=== PATIENT | male | born 1950 | race Caucasian/White ===

== ENCOUNTER 2018-12-23 09:29 | Observation (INO) | payer MEDICARE, BC ==
[~2018-12-23 09:29] MED LIST: Lidocaine 2% 5 ML SDV ONE; Propofol 200 MG/20 ML SDV ONE; fentaNYL 100 MCG/2 ML SDV ONE
[2018-12-23] MEDS: Lactated Ringers 1,000 ML IV SCH ×2 (10:22→16:52)
--- NOTE | 2018-12-23 10:24 | PCM.PREANE ---
Preanesthetic Assessment - Anesthesia/Transfusion/Family Hx Anesthesia History: Prior Anesthesia Without Reaction Family History of Anesthesia Reaction: No Transfusion History: No Prior Transfusion(s) - Review of Systems General: No Symptoms Pulmonary: Cough, Sputum Cardiovascular: No Symptoms Gastrointestinal: No Symptoms Neurological: No Symptoms Other: Reports: None - Physical Assessment NPO Status Date: 12/22/18 NPO Status Time: 23:59 Vital Signs: Last Vital Signs Temp 99.3 F 12/23/18 09:43 Pulse 101 H 12/23/18 09:43 Resp 20 12/23/18 09:43 BP 145/66 H 12/23/18 09:43 Pulse Ox 93 L 12/23/18 09:43 Height: 5 ft 11 in Weight: 108.862 kg ASA Class: 2 Mental Status: Alert & Oriented x3 Airway Class: Mallampati = 2 Dentition: Reports: Dentures ROM/Head Extension: Full Lungs: Clear to Auscultation, Normal Respiratory Effort Cardiovascular: Regular Rate, Regular Rhythm - Allergies Allergies/Adverse Reactions: Allergies Allergy/AdvReac Type Severity Reaction Status Date / Time Penicillins Allergy Swelling Verified 12/18/18 10:41 - Blood Blood Available: No - Anesthesia Plan Pre-Op Medication Ordered: None - Acknowledgements Anesthesia Type Planned: General Anesthesia Pt an Appropriate Candidate for the Planned Anesthesia: Yes Alternatives and Risks of Anesthesia Discussed w Pt/Guardian: Yes Pt/Guardian Understands and Agrees with Anesthesia Plan: Yes Additional Comments: PMH: RA- on remicade and mtx, gerd, htn, anemia of chr dz- last hb was 12.7, recent uri with cough and speutum no wheezing or toxicity PLAN: tiva PreAnesthesia Questionnaire HEENT History: Reports: Allergic Rhinitis, Other (See Below) Other HEENT History: wears glasses, top and bottom dentures Cardiovascular History: Reports: Hypertension Respiratory History: Reports: None Gastrointestinal History: Reports: Gastritis, GERD Genitourinary History: Reports: Renal Calculus Musculoskeletal History: Reports: Fracture, RA Neurological History: Reports: Concussion Psychiatric History: Reports: None Endocrine/Metabolic History: Reports: Obesity/BMI 30+ Hematologic History: Reports: None Immunologic History: Reports: None Other Oncologic History: testicular Dermatologic History: Reports: None - Past Surgical History Head Surgeries/Procedures: Reports: None HEENT Surgical History: Reports: Tonsillectomy Cardiovascular Surgical History: Reports: None Respiratory Surgical History: Reports: None GI Surgical History: Reports: Cholecystectomy, EGD Other Female Surgeries/Procedures: radical orchiectomy for testicular cancer Male Surgical History: Reports: Other (See Below) Endocrine Surgical History: Reports: None Neurological Surgical History: Reports: None Musculoskeletal Surgical History: Reports: ORIF Other Musculoskeletal Surgeries/Procedures:: ORIF rt ankle Oncologic Surgical History: Reports: None Dermatological Surgical History: Reports: None - SUBSTANCE USE Smoking Status *Q: Never Smoker Recreational Drug Use History: No - HOME MEDS Home Medications: Home Meds Aspirin [Ida Chewable Aspirin] 81 mg PO DAILY 07/30/13 [History] Cetirizine HCl [Zyrtec] 10 mg PO DAILY 07/30/13 [History] Chlorthalidone 12.5 mg PO DAILY 07/30/13 [History] Esomeprazole [NexIUM] 40 mg PO DAILY 07/30/13 [History] Methotrexate 6 tab PO WEEKLY 07/30/13 [History] Acetaminophen [Tylenol Arthritis Pain] 2 tab PO ASDIRECTED PRN 07/22/14 [History ] InFLIXimab [Remicade] 400 ml IV ASDIRECTED 07/22/14 [History] Folic Acid 1 mg PO DAILY 12/18/18 [History] - CURRENT (IN HOUSE) MEDS Current Meds: Current Medications Lactated Ringer's (Ringers, Lactated) 1,000 mls @ 125 mls/hr IV ASDIRECTED ANTONIO Discontinued Medications Fentanyl (Sublimaze) Confirm Administered Dose 100 mcg .ROUTE .STK-MED ONE Stop: 12/23/18 08:48 Lidocaine (Xylocaine-Mpf 2%) Confirm Administered Dose 5 ml .ROUTE .STK-MED ONE Stop: 12/23/18 08:48 Propofol (Diprivan 20 Ml) Confirm Administered Dose 400 mg .ROUTE .STK-MED ONE Stop: 12/23/18 08:48
--- NOTE | 2018-12-23 11:13 | PCM48HPAN ---
Post Anesthesia Note - EVALUATION WITHIN 48HRS OF ANESTHETIC Vital Signs in Normal Range: Yes Patient Participated in Evaluation: Yes Respiratory Function Stable: Yes Airway Patent: Yes Cardiovascular Function Stable: Yes Hydration Status Stable: Yes Pain Control Satisfactory: Yes Nausea and Vomiting Control Satisfactory: Yes Mental Status Recovered: Yes Vital Signs: Last Vital Signs Temp 99.3 F 12/23/18 09:43 Pulse 101 H 12/23/18 09:43 Resp 20 12/23/18 09:43 BP 145/66 H 12/23/18 09:43 Pulse Ox 93 L 12/23/18 09:43 - COMMENTS/OBSERVATIONS Free Text/Narrative:: comfortable, easily awakened by voice, spo2=94 when asleep on room air.
--- NOTE | 2018-12-23 11:15 | PCM.POSTAN ---
POST ANESTHESIA ASSESSMENT - MENTAL STATUS Mental Status: Alert, Oriented - VITAL SIGNS Vital Signs: Last Vital Signs Temp 99.3 F 12/23/18 09:43 Pulse 101 H 12/23/18 09:43 Resp 20 12/23/18 09:43 BP 145/66 H 12/23/18 09:43 Pulse Ox 93 L 12/23/18 09:43 - RESPIRATORY Respiratory Status: Respiratory Rate WNL, Airway Patent, O2 Saturation Stable - CARDIOVASCULAR CV Status: Pulse Rate WNL, Blood Pressure Stable - GASTROINTESTINAL GI Status: No Symptoms - POST OP HYDRATION Hydration Status: Adequate & Stable (room air spo2=94 when sleeping in pacu, will place on sat monitoe after discharge from pacu)
--- NOTE | 2018-12-23 11:18 | PCM.OPNOTE ---
- General Post-Op/Procedure Note Date of Surgery/Procedure: 12/23/18 Operative Procedure(s): Colonoscopy with cold splenic flexure polypectomy Pre Op Diagnosis: Desire for colorectal cancer screening Post-Op Diagnosis: Splenic flexure polyp Anesthesia Technique: MAC (ASA II) Primary Surgeon: Tin Rubio Condition: Good Free Text/Narrative:: DICTATION 212103 CPT CODE 22520
[2018-12-23] MEDS ORDERED: Lactated Ringers 1,000 ML IV SCH (11:30)
--- NOTE | 2018-12-23 11:44 | PCM.POSTAN ---
POST ANESTHESIA ASSESSMENT - MENTAL STATUS Mental Status: Alert, Oriented - VITAL SIGNS Vital Signs: Last Vital Signs Temp 99.3 F 12/23/18 09:43 Pulse 86 12/23/18 11:37 Resp 20 12/23/18 11:37 BP 113/56 L 12/23/18 11:37 Pulse Ox 93 L 12/23/18 11:37 - RESPIRATORY Respiratory Status: Respiratory Rate WNL, Airway Patent, Supplemental Oxygen - CARDIOVASCULAR CV Status: Pulse Rate WNL, Blood Pressure Stable - GASTROINTESTINAL GI Status: No Symptoms - POST OP HYDRATION Hydration Status: Adequate & Stable (room air spo2=94 when sleeping in pacu, will place on sat monitoe after discharge from pacu) - OBSERVATIONS Free Text/Narrative:: awake and alert. spo2 vary from 88 to 92 on room air. Will move to phase 2 , place on [place] oxygen. sit in chair, encourage ambulation, use incentive spirometyr , and slowly wean off O2.
[2018-12-23] MEDS ORDERED: Albuterol/Ipratropium 3.0-0.5 MG/3 ML Neb Soln NEB ONE (12:33)
[2018-12-23] MEDS ORDERED: Albuterol/Ipratropium 3.0-0.5 MG/3 ML Neb Soln ONE (12:40)
--- NOTE | 2018-12-23 14:59 | CR ---
INDICATION: Low oxygen saturation. COMPARISON: Report of the previous chest radiograph from 08/12/2012 FINDINGS: An erect single view of the chest was obtained at 1406 hours. There is new moderate infiltrate in the lateral left lower chest, with preservation of the left heart border. This is consistent with a left lower lobe infiltrate, suspicious for left lower lobe pneumonia. There is new mild patchy infiltrate in the right lower chest, probably atelectasis. Lung volumes are low, resulting in crowding of lung markings throughout the rest of the chest. The heart is now mildly enlarged, at least partially the result of shallow inspiration. The mediastinum is otherwise normal in appearance. The osseous structures are normal in appearance for the patient`s age. IMPRESSION: New moderate left lateral lower lobe infiltrate, probably left lower lobe pneumonia. New mild patchy infiltrate in the right lower chest, probably atelectasis. New mild cardiomegaly, at least partially the result of shallow inspiration. I am awaiting the previous images for comparison. If there is any significant difference, I will dictate an addendum. Dictated by Jun Carmona MD @ Dec 23 2018 2:54PM Signed by Dr. Jun Carmona @ Dec 23 2018 2:57PM
--- NOTE | 2018-12-23 15:55 | PCM.SN ---
- Free Text/Narrative Note: cxr shows pneumonia. spo2 93% on room air. case discussed with Dr. Rubio, Dr. Hyatt, and the patient. The patient will be admitted under Dr. Hyatt's care.
[2018-12-23] MEDS ORDERED: oxyCODONE 5 MG Tab PO PRN (16:44)
[2018-12-23] MEDS ORDERED: Acetaminophen 325 MG Tab PO PRN (16:44)
[2018-12-23] MEDS ORDERED: Albuterol/Ipratropium 3.0-0.5 MG/3 ML Neb Soln NEB PRN (16:44)
--- NOTE | 2018-12-23 16:47 | PCM.HP.2 ---
H&P History of Present Illness - General Date of Service: 12/23/18 Admit Problem/Dx: Admission Diagnosis/Problem Admission Diagnosis/Problem Pneumonia Source of Information: Patient History Limitations: Reports: No Limitations - History of Present Illness Initial Comments - Free Text/Narative: The patient is a 68-year-old gentleman who had undergone a screening colonoscopy and during recovery phase was noted to be hypoxic and requiring increased oxygen. The patient was then admitted directly to the hospital from same day surgery. He had an x-ray which was noted to have lower lobe pneumonia. The patient says that he has been feeling ill for at least the past 2 weeks. He is denied any fever or chills but he has had increasing cough. No increased production of sputum. He is denied any chest pain. His primary concern is that he has had some shortness of breath. No other specific aggravating or relieving factors. The patient is a nonsmoker. Onset of Symptoms: Reports: Unknown/Unsure Duration of Symptoms: Reports: Getting Worse Location: Reports: Chest Quality: Reports: Dull Severity: Mild Improves with: Reports: Other (Oxygen) Worsens with: Reports: Movement Associated Symptoms: Reports: No Other Symptoms - Related Data Allergies/Adverse Reactions: Allergies Allergy/AdvReac Type Severity Reaction Status Date / Time Penicillins Allergy Swelling Verified 12/18/18 10:41 Home Medications: Home Meds Aspirin [Ida Chewable Aspirin] 81 mg PO DAILY 07/30/13 [History] Cetirizine HCl [Zyrtec] 10 mg PO DAILY 07/30/13 [History] Chlorthalidone 12.5 mg PO DAILY 07/30/13 [History] Esomeprazole [NexIUM] 40 mg PO DAILY 07/30/13 [History] Methotrexate 6 tab PO WEEKLY 07/30/13 [History] Acetaminophen [Tylenol Arthritis Pain] 2 tab PO ASDIRECTED PRN 07/22/14 [History ] InFLIXimab [Remicade] 400 ml IV ASDIRECTED 07/22/14 [History] Folic Acid 1 mg PO DAILY 12/18/18 [History] Past Medical History HEENT History: Reports: Allergic Rhinitis, Other (See Below) Other HEENT History: wears glasses, top and bottom dentures Cardiovascular History: Reports: Hypertension Respiratory History: Reports: None Gastrointestinal History: Reports: Gastritis, GERD Genitourinary History: Reports: Renal Calculus Musculoskeletal History: Reports: Fracture, RA Neurological History: Reports: Concussion Psychiatric History: Reports: None Endocrine/Metabolic History: Reports: Obesity/BMI 30+ Hematologic History: Reports: None Immunologic History: Reports: None Other Oncologic History: testicular Dermatologic History: Reports: None - Past Surgical History Head Surgeries/Procedures: Reports: None HEENT Surgical History: Reports: Tonsillectomy Cardiovascular Surgical History: Reports: None Respiratory Surgical History: Reports: None GI Surgical History: Reports: Cholecystectomy, EGD Other Female Surgeries/Procedures: radical orchiectomy for testicular cancer Male Surgical History: Reports: Other (See Below) Endocrine Surgical History: Reports: None Neurological Surgical History: Reports: None Musculoskeletal Surgical History: Reports: ORIF Other Musculoskeletal Surgeries/Procedures:: ORIF rt ankle Oncologic Surgical History: Reports: None Dermatological Surgical History: Reports: None Social & Family History - Tobacco Use Smoking Status *Q: Never Smoker - Recreational Drug Use Recreational Drug Use: No Drug Use in Last 12 Months: No - Living Situation & Occupation Living situation: Reports: Occupation: Retired H&P Review of Systems - Review of Systems: Review Of Systems: See Below General: Reports: Weakness, Fatigue HEENT: Reports: No Symptoms Pulmonary: Reports: Shortness of Breath, Wheezing, Cough, Sputum Cardiovascular: Reports: No Symptoms Gastrointestinal: Reports: No Symptoms Genitourinary: Reports: No Symptoms Musculoskeletal: Reports: No Symptoms Skin: Reports: No Symptoms Psychiatric: Reports: No Symptoms Neurological: Reports: No Symptoms Hematologic/Lymphatic: Reports: No Symptoms Immunologic: Reports: No Symptoms Exam - Exam Exam: See Below - Vital Signs Vital Signs: Last Vital Signs Temp 36.2 C 12/23/18 16:38 Pulse 88 12/23/18 16:38 Resp 20 12/23/18 16:38 BP 121/60 12/23/18 16:38 Pulse Ox 96 12/23/18 16:38 Weight: 108.862 kg - Exam Quality Assessment: Supplemental Oxygen General: Alert, Oriented, Cooperative, Mild Distress HEENT: Conjunctiva Clear, EACs Clear, EOMI, Hearing Intact, Mucosa Moist & [place] , Pupils Equal, PERRLA Neck: Supple, Trachea Midline Lungs: Normal Respiratory Effort, Decreased Breath Sounds (Left lower lobe), Rales (Predominantly left lower lobe) Cardiovascular: Regular Rate, Regular Rhythm GI/Abdominal Exam: Normal Bowel Sounds, Soft, Non-Tender, No Distention Back Exam: Normal Inspection, Full Range of Motion Extremities: Normal Inspection, No Pedal Edema Skin: Warm, Dry, Intact Neurological: Cranial Nerves Intact Neuro Extensive - Mental Status: Alert, Oriented x3 Psychiatric: Alert, Normal Affect, Normal Mood - Patient Data Result Diagrams: 12/23/18 17:15 12/23/18 17:15 - Problem List (1) Left lower lobe pneumonia SNOMED Code(s): 745978334 ICD Code: J18.1 - LOBAR PNEUMONIA, UNSPECIFIED ORGANISM Status: Acute Priority: High Current Visit: Yes Qualifiers: Pneumonia type: due to unspecified organism Qualified Code(s): J18.1 - Lobar pneumonia, unspecified organism (2) Acute respiratory failure SNOMED Code(s): 03468435 ICD Code: J96.00 - ACUTE RESPIRATORY FAILURE, UNSP W HYPOXIA OR HYPERCAPNIA Status: Acute Priority: High Current Visit: Yes Qualifiers: Respiratory failure complication: hypoxia Qualified Code(s): J96.01 - Acute respiratory failure with hypoxia (3) Hypoxia SNOMED Code(s): 792479194 ICD Code: R09.02 - HYPOXEMIA Status: Acute Priority: High Current Visit : Yes (4) Hypokalemia SNOMED Code(s): 01029829 ICD Code: E87.6 - HYPOKALEMIA Status: Acute Priority: High Current Visit: Yes (5) Rheumatoid arthritis SNOMED Code(s): 00230827 ICD Code: M06.9 - RHEUMATOID ARTHRITIS, UNSPECIFIED Status: Chronic Priority: Medium Current Visit: Yes Qualifiers: Rheumatoid arthritis location: unspecified site Rheumatoid factor presence : with rheumatoid factor Qualified Code(s): M05.9 - Rheumatoid arthritis with rheumatoid factor, unspecified (6) Hypertension SNOMED Code(s): 95949959 ICD Code: I10 - ESSENTIAL (PRIMARY) HYPERTENSION Status: Chronic Priority : Medium Current Visit: Yes Qualifiers: Hypertension type: essential hypertension Qualified Code(s): I10 - Essential (primary) hypertension Problem List Initiated/Reviewed/Updated: Yes Orders Last 24hrs: Active Orders 24 hr Category Date Time Status Patient Status [ADT] Urgent ADT 12/23/18 16:41 Ordered Cardiac Monitoring [RC] CONTINUOUS Care 12/23/18 16:43 Ordered Overnight Pulse Oximetry [RC] Click to Edit Care 12/23/18 11:11 Active Oxygen Therapy [RC] PRN Care 12/23/18 07:00 Active Oxygen Therapy [RC] PRN Care 12/23/18 16:41 Ordered Oxygen Therapy [RC] PRN Care 12/23/18 16:44 Ordered Pulse Oximetry [RC] INTERMITTENT Care 12/23/18 11:16 Active RT Aerosol Therapy [RC] ASDIRECTED Care 12/23/18 12:33 Active RT Aerosol Therapy [RC] ASDIRECTED Care 12/23/18 16:46 Ordered Ready for Discharge [RC] PER UNIT ROUTINE Care 12/23/18 11:18 Active Up ad [place] [RC] ASDIRECTED Care 12/23/18 11:16 Active VTE/DVT Education [RC] PER UNIT ROUTINE Care 12/23/18 16:41 Ordered VTE/DVT Education [RC] PER UNIT ROUTINE Care 12/23/18 16:44 Ordered Vital Signs [RC] PER UNIT ROUTINE Care 12/23/18 07:00 Active Vital Signs [RC] PER UNIT ROUTINE Care 12/23/18 11:16 Active Vital Signs [RC] Q4H Care 12/23/18 16:41 Ordered Vital Signs [RC] Q4H Care 12/23/18 16:44 Ordered Advance Diet Instructions [DIET] Diet 12/23/18 Breakfast Active Heart Healthy Diet [DIET] Diet 12/24/18 Breakfast Ordered CBC WITH AUTO DIFF [HEME] Routine Lab 12/23/18 16:44 Ordered COMPREHENSIVE METABOLIC PN,CMP [CHEM] Routine Lab 12/23/18 16:44 Ordered LACTIC ACID,WHOLE BLOOD [BG] Routine Lab 12/23/18 16:44 Ordered MAGNESIUM [CHEM] Routine Lab 12/23/18 16:44 Ordered Acetaminophen [Tylenol] Med 12/23/18 16:44 Ordered 650 mg PO Q4H PRN Albuterol/Ipratropium [DuoNeb 3.0-0.5 MG/3 ML] Med 12/23/18 16:44 Ordered 3 ml NEB Q4HRRT PRN Chlorthalidone Med 12/24/18 09:00 Ordered 12.5 mg PO DAILY Esomeprazole [NexIUM] Med 12/24/18 09:00 Ordered 40 mg PO DAILY Folic Acid Med 12/24/18 09:00 Ordered 1 mg PO DAILY Heparin Sodium Med 12/23/18 16:45 Ordered 5,000 units SUBCUT Q8H InFLIXimab [Remicade] Med 12/23/18 16:45 Ordered 400 ml IV ASDIRECTED Lactated Ringers [Ringers, Lactated] 1,000 ml Med 12/23/18 07:00 Active IV ASDIRECTED Lactated Ringers [Ringers, Lactated] 1,000 ml Med 12/23/18 11:30 Active IV ASDIRECTED Levofloxacin/Dextrose 5%-Water [Levaquin in D5W 500 MG/ Med 12/23/18 17:00 Ordered 100 ML] 500 mg Premix Bag 1 bag IV Q24H Sodium Chloride 0.9% @ 125 MLS/HR (1000ml) Med 12/23/18 16:45 Ordered Sodium Chloride 0.9% [Normal Saline] 1,000 ml IV ASDIRECTED oxyCODONE Med 12/23/18 16:44 Ordered 5 mg PO Q4H PRN Pulse Oximetry Continuous Monitoring [OM.PC] Routine Oth 12/23/18 11:10 Ordered Medication Orders Acetaminophen (Tylenol) 650 mg PO Q4H PRN PRN Reason: Pain (Mild 1-3)/fever Albuterol/Ipratropium (Duoneb 3.0-0.5 Mg/3 Ml) 3 ml NEB Q4HRRT PRN PRN Reason: Shortness Of Breath/wheezing Chlorthalidone (Chlorthalidone) 12.5 mg PO DAILY [facility] Folic Acid (Folic Acid) 1 mg PO DAILY [facility] Heparin Sodium (Porcine) (Heparin Sodium) 5,000 units SUBCUT Q8H ANTONIO Lactated Ringer's (Ringers, Lactated) 1,000 mls @ 125 mls/hr IV ASDIRECTED [facility] Last Admin: 12/23/18 10:22 Dose: 125 mls/hr Lactated Ringer's (Ringers, Lactated) 1,000 mls @ 125 mls/hr IV ASDIRECTED [facility] Sodium Chloride (Normal Saline) 1,000 mls @ 125 mls/hr IV ASDIRECTED [facility] Infliximab (Remicade) mg IV ASDIRECTED [facility] Oxycodone HCl (Oxycodone) 5 mg PO Q4H PRN PRN Reason: Pain (moderate 4-6) Esomeprazole [Nexium (] 40 Mg) 1 each PO DAILY [facility] Assessment/Plan Comment:: The patient is an otherwise healthy 68-year-old gentleman who had undergone screening colonoscopy and became hypoxic. The patient is taking Remicade for his rheumatoid arthritis, which is well controlled, and results of this he has been placed on Levaquin 500 mg IV every 24 hours. Lactic acid level drawn initially was normal. The patient also has an essentially normal white blood cell count and has been afebrile and this does not represent sepsis. The patient will be maintained on oxygen support to keep his saturations above 92%. He also has been encouraged to ambulate. A CT scan has also been ordered of his chest to help exclude neoplastic process. The patient will be kept on his home medication except for the Remicade and supplements. He'll have his vital signs monitored and his retention medications will be adjusted as necessary. He'll also have DVT prophylaxis with the use of heparin 5000 units subcutaneous every 8 hours. The patient should be appropriate for discharge in 1-2 days. - Mortality Measure Prognosis:: Good
[2018-12-23] MEDS ORDERED: Levofloxacin/Dextrose 5%-Water 500 MG in Premix Bag 1 BAG IV SCH (17:00)
[2018-12-23] MEDS: Sodium Chloride 0.9% 1,000 ML IV SCH (17:24)
--- NOTE | 2018-12-23 17:27 | OR ---
SURGEON: Tin Rubio M.D. DATE OF PROCEDURE: 12/23/2018 OPERATION PERFORMED: Colonoscopy with cold splenic flexure polypectomy. PRIMARY SURGEON: Tin Rubio M.D. ANESTHESIA: MAC. ASA CLASSIFICATION: II. PREOPERATIVE DIAGNOSIS: Desire for colorectal cancer screening. POSTOPERATIVE DIAGNOSIS: Small splenic flexure polyp. DESCRIPTION OF PROCEDURE: The patient was taken to the endoscopy room and positioned on the endoscopy table in the left lateral decubitus position. Time-out was called for appropriate identification of the patient and procedure. Monitored anesthesia care was provided. The colonoscope was inserted into the rectum and advanced with minimal difficulty to the cecum where the colonoscope was retroflexed to visualize the ascending colon from below. The colonoscope was then straightened and slowly withdrawn. The cecum, ascending colon, hepatic flexure, and transverse colon showed no tumors, polyps, diverticula, or angiodysplastic changes. One small polyp was encountered at the splenic flexure and removed with cold biopsy forceps. There was no significant bleeding. The descending colon and sigmoid colon showed no tumors, polyps, diverticula, or angiodysplastic changes. The colonoscope was withdrawn to the rectum and retroflexed to visualize the anal orifice from above. Again, no tumors or polyps were seen, and there were no acute hemorrhoidal changes. The colonoscope was then straightened, the rectum aspirated, and the colonoscope removed. The patient tolerated the procedure well and was taken to recovery room in stable condition. MAYRA VIERA /[id number]
[2018-12-23 17:46] LABS: BLOOD UREA NITROGEN,BUN 17 mg/dL (7.0-18.0); CARBON DIOXIDE,CO2 28.7 mmol/L (21.0-32.0); CHLORIDE,CL 96 mmol/L (98-107); GLUCOSE RANDOM 100 mg/dL (74-106); SODIUM,NA 136 mmol/L (136-148)
[2018-12-23] MEDS ORDERED: Potassium Chloride 20 MEQ Tab.ER PO ONE (18:08)
[2018-12-23] MEDS: Heparin Sodium 5,000 Units/ML Vial SUBCUT SCH (18:11)
--- NOTE | 2018-12-23 19:16 | CT ---
INDICATION: Pneumonia TECHNIQUE: CT chest without i.v. contrast. Coronal and sagittal reformats were obtained. COMPARISON: CXR today FINDINGS: Moderate degradation of image quality noted due to patient motion artifacts. Cardiovascular: The heart has an unremarkable appearance and size. The pulmonary arteries are unremarkable in appearance. No sign of aneurysm seen in the thoracic aorta. The presence of aortic dissection cannot be evaluated without the use of intravenous contrast. Mediastinum: No mass or adenopathy seen. Lung: There is a region of consolidation present within the left lower lobe measuring 6.5 x 6.4 cm with a small focus of central gas seen on image 50 measuring 7 mm. There is an 8 mm nodule present in the superior segment of the right lower lobe. Follow-up chest CT in 3 months is recommended. Pleura and pericardium: Trace left pleural effusion is noted. No significant pericardial effusion is present. Chest wall and axilla: No mass or adenopathy seen. Bone: Unremarkable for age. Upper abdomen: Small sliding type gastric hiatal hernia (type IV) is present. Low-density renal lesions are present bilaterally measuring up to 2.9 cm. These are incompletely characterized without the use of intravenous contrast. IMPRESSIONS: 1. There is a region of consolidation present within the left lower lobe measuring 6.5 x 6.4 cm with a small focus of central gas seen on image 50 measuring 7 mm. Findings may be due to pneumonia with a small pulmonary abscess or cavitation. Follow-up imaging or evaluation with bronchoscopy may be helpful to exclude a necrotic pulmonary mass. 2. Trace left pleural effusion is noted. Dictated by Dontrell Bravo MD @ 12/23/2018 7:14:37 PM Please note that all CT scans at this facility use dose modulation, iterative reconstruction, and/or weight-based dosing when appropriate to reduce radiation dose to as low as reasonably achievable. Dictated by: Dontrell Bravo MD @ 12/23/2018 19:14:45 (Electronically Signed)
[2018-12-24] MEDS: Heparin Sodium 5,000 Units/ML Vial SUBCUT SCH ×2 (00:15→08:55)
[2018-12-24] MEDS: Sodium Chloride 0.9% 1,000 ML IV SCH (03:02)
[2018-12-24] MEDS ORDERED: Omeprazole 20 MG Cap.CR PO SCH (07:30)
[2018-12-24 07:36] LABS: BLOOD UREA NITROGEN,BUN 16 mg/dL (7.0-18.0); CARBON DIOXIDE,CO2 29.8 mmol/L (21.0-32.0); CHLORIDE,CL 100 mmol/L (98-107); GLUCOSE RANDOM 104 mg/dL (74-106); POTASSIUM,K 3.1 mmol/L (3.5-5.1); SODIUM,NA 138 mmol/L (136-148)
[2018-12-24] MEDS ORDERED: Folic Acid 1 MG Tab PO SCH (09:00)
[2018-12-24] MEDS ORDERED: Chlorthalidone 25 MG Tab PO SCH (09:00)
[2018-12-24] MEDS ORDERED: Sodium Chloride 0.9% 1,000 ML IV SCH (09:30)
--- NOTE | 2018-12-24 12:00 | PCM48HPAN ---
Post Anesthesia Note - EVALUATION WITHIN 48HRS OF ANESTHETIC Vital Signs in Normal Range: Yes Patient Participated in Evaluation: Yes Respiratory Function Stable: No (currently admitted and being treated for pneumonia) Airway Patent: Yes Cardiovascular Function Stable: Yes Hydration Status Stable: Yes Pain Control Satisfactory: Yes Nausea and Vomiting Control Satisfactory: Yes Mental Status Recovered: Yes Vital Signs: Last Vital Signs Temp 36.8 C 12/24/18 07:40 Pulse 87 12/24/18 07:40 Resp 18 12/24/18 07:40 BP 124/66 12/24/18 07:40 Pulse Ox 92 L 12/24/18 07:40
--- NOTE | 2018-12-24 12:02 | PCM.DCSUM1 ---
Discharge Summary - Hospital Course Diagnosis: Stroke: No - Discharge Data Discharge Date: 12/24/18 Discharge Disposition: Home, Self-Care 01 Condition: Good - Referral to Home Health Primary Care Physician: Thor Leos MD - Discharge Diagnosis/Problem(s) (1) Left lower lobe pneumonia SNOMED Code(s): 335139600 ICD Code: J18.1 - LOBAR PNEUMONIA, UNSPECIFIED ORGANISM Status: Acute Priority: High Current Visit: Yes Qualifiers: Pneumonia type: due to unspecified organism Qualified Code(s): J18.1 - Lobar pneumonia, unspecified organism (2) Acute respiratory failure SNOMED Code(s): 41458174 ICD Code: J96.00 - ACUTE RESPIRATORY FAILURE, UNSP W HYPOXIA OR HYPERCAPNIA Status: Resolved Priority: High Current Visit: Yes Qualifiers: Respiratory failure complication: hypoxia Qualified Code(s): J96.01 - Acute respiratory failure with hypoxia (3) Hypoxia SNOMED Code(s): 934046298 ICD Code: R09.02 - HYPOXEMIA Status: Resolved Priority: High Current Visit: Yes (4) Hypokalemia SNOMED Code(s): 02835331 ICD Code: E87.6 - HYPOKALEMIA Status: Acute Priority: High Current Visit: Yes (5) Rheumatoid arthritis SNOMED Code(s): 14923902 ICD Code: M06.9 - RHEUMATOID ARTHRITIS, UNSPECIFIED Status: Chronic Priority: Medium Current Visit: Yes Qualifiers: Rheumatoid arthritis location: unspecified site Rheumatoid factor presence : with rheumatoid factor Qualified Code(s): M05.9 - Rheumatoid arthritis with rheumatoid factor, unspecified (6) Hypertension SNOMED Code(s): 92720624 ICD Code: I10 - ESSENTIAL (PRIMARY) HYPERTENSION Status: Chronic Priority : Medium Current Visit: Yes Qualifiers: Hypertension type: essential hypertension Qualified Code(s): I10 - Essential (primary) hypertension - Patient Summary/Data Operative Procedure(s) Performed: Colonoscopy with cold splenic flexure polypectomy Hospital Course: The patient is a 68-year-old gentleman who underwent a screening colonoscopy on December 23, 2018 was noted to be hypoxic and a chest x-ray obtained showed to have right lower lobe pneumonia. Because of the patient being on Remicade and methotrexate for his rheumatoid arthritis he was admitted to acute hospitalization and started on broad-spectrum antibiotics. Patient also was started on fluids and normal saline at 125 mL per hour. The patient was started on Levaquin 500 mg IV daily. The patient reportedly had been feeling ill for [address] a [address] scan of his chest was obtained to exclude neoplastic processes. The patient was noted have a consolidation in the left lower lobe that were had measured 6.5 x 6.4 cm small foci a central gas measuring 7 mm. There is also a stable 8 mm nodule in the superior segment of the right upper lobe. Patient is aware of this one. The patient continued to improve and recover quickly. The patient has been discharged on Levaquin 500 mg by mouth for 10 days. The patient was also noted to be mildly hypokalemic and as result of this he was also discharged on potassium chloride 15 mEq daily. This initially was replaced yesterday afternoon with 40 mEq and the patient had tolerated this well. He has been recommended to continue with his diet as tolerated. He is also to have activity as tolerated. The patient has been hemodynamically stable, afebrile and he has been recommended to follow-up with his primary care physician to follow pneumonia until resolution. He will be discharged with recommendations listed above. - Patient Instructions Diet: Usual Diet as Tolerated Activity: As Tolerated, Rest and Relax Today Driving: Do Not Drive (For 24 hours) Notify Provider of: Fever, Increased Pain Other/Special Instructions: See Dr. Rubio in 7-10 days as scheduled. - Discharge Plan *PRESCRIPTION DRUG MONITORING PROGRAM REVIEWED*: No *COPY OF PRESCRIPTION DRUG MONITORING REPORT IN PATIENT DAYSI: No Prescriptions/Med Rec: levoFLOXacin [Levaquin] 500 mg PO DAILY #10 tab Potassium Citrate [Potassium Citrate ER] 15 meq PO DAILY #30 tablet.er Home Medications: Home Meds Aspirin [Ida Chewable Aspirin] 81 mg PO DAILY 07/30/13 [History] Cetirizine HCl [Zyrtec] 10 mg PO DAILY 07/30/13 [History] Chlorthalidone 12.5 mg PO DAILY 07/30/13 [History] Esomeprazole [NexIUM] 40 mg PO DAILY 07/30/13 [History] Methotrexate 6 tab PO WEEKLY 07/30/13 [History] Acetaminophen [Tylenol Arthritis Pain] 2 tab PO ASDIRECTED PRN 07/22/14 [History ] InFLIXimab [Remicade] 400 ml IV ASDIRECTED 07/22/14 [History] Folic Acid 1 mg PO DAILY 12/18/18 [History] Potassium Citrate [Potassium Citrate ER] 15 meq PO DAILY #30 tablet.er 12/24/18 [Rx] levoFLOXacin [Levaquin] 500 mg PO DAILY #10 tab 12/24/18 [Rx] Oxygen Therapy Mode: Room Air Patient Handouts: Levofloxacin tablets, Community-Acquired Pneumonia, Adult Referrals: Tin Rubio MD [Physician] - - Discharge Summary/Plan Comment DC Time >30 min.: Yes - General Info Date of Service: 12/24/18 Admission Dx/Problem (Free Text: Admission Diagnosis/Problem Admission Diagnosis/Problem Pneumonia, left lower lobe Subjective Update: The patient is breathing better. He feels like he can go home. Functional Status: Reports: Pain Controlled - Review of Systems General: Reports: No Symptoms HEENT: Reports: No Symptoms Pulmonary: Reports: No Symptoms Cardiovascular: Reports: No Symptoms Gastrointestinal: Reports: No Symptoms Genitourinary: Reports: No Symptoms Musculoskeletal: Reports: No Symptoms Skin: Reports: No Symptoms Neurological: Reports: No Symptoms Psychiatric: Reports: No Symptoms - Patient Data Vitals - Most Recent: Last Vital Signs Temp 36.8 C 12/24/18 07:40 Pulse 87 12/24/18 07:40 Resp 18 12/24/18 07:40 BP 124/66 12/24/18 07:40 Pulse Ox 92 L 12/24/18 07:40 Weight - Most Recent: 108.862 kg I&O - Last 24 hours: Intake & Output 12/23/18 12/24/18 12/24/18 22:59 06:59 14:59 Intake Total 2086 Output Total 1020 Balance 1066 Lab Results - Last 24 hrs: Laboratory Results - last 24 hr 12/23/18 12/23/18 12/23/18 Range/Units 17:15 17:15 20:17 WBC 9.49 (4.0-11.0) K/uL RBC 4.79 (4.50-5.90) M/uL Hgb 12.0 L (13.0-17.0) g/dL Hct 37.5 L (38.0-50.0) % MCV 78.3 L (80.0-98.0) fL MCH 25.1 L (27.0-32.0) pg MCHC 32.0 (31.0-37.0) g/dL RDW Std Deviation 45.5 (28.0-62.0) fl RDW Coeff of Deonna 16 H (11.0-15.0) % Plt Count 230 (150-400) K/uL MPV 9.40 (7.40-12.00) fL Neut % (Auto) 73.3 (48.0-80.0) % Lymph % (Auto) 15.0 L (16.0-40.0) % [place] % (Auto) 10.5 (0.0-15.0) % Eos % (Auto) 0.9 (0.0-7.0) % Baso % (Auto) 0.3 (0.0-1.5) % Neut # (Auto) 7.0 H (1.4-5.7) K/uL Lymph # (Auto) 1.4 (0.6-2.4) K/uL [place] # (Auto) 1.0 H (0.0-0.8) K/uL Eos # (Auto) 0.1 (0.0-0.7) K/uL Baso # (Auto) 0.0 (0.0-0.1) K/uL Nucleated RBC % 0.0 /100WBC Nucleated RBCs # 0 K/uL Lactate 1.5 (0.20-2.00) mmol/L Sodium 136 (136-148) mmol/L Potassium 3.0 L (3.5-5.1) mmol/L Chloride 96 L (98-107) mmol/L Carbon Dioxide 28.7 (21.0-32.0) mmol/L BUN 17 (7.0-18.0) mg/dL Creatinine 0.9 (0.8-1.3) mg/dL Est Cr Clr Drug Dosing 81.34 mL/min Estimated GFR (MDRD) > 60.0 ml/min Glucose 100 (74-106) mg/dL POC Glucose (60-110) mg/dL Calcium 8.4 L (8.5-10.1) mg/dL Magnesium 2.4 (1.8-2.4) mg/dL Total Bilirubin 0.7 (0.2-1.0) mg/dL AST 42 H (15-37) IU/L ALT 38 (14-63) IU/L Alkaline Phosphatase 57 (46-116) U/L Total Protein 7.4 (6.4-8.2) g/dL Albumin 2.6 L (3.4-5.0) g/dL Globulin 4.8 H (2.6-4.0) g/dL Albumin/Globulin Ratio 0.5 L (0.9-1.6) 12/23/18 12/24/18 12/24/18 Range/Units 20:31 07:06 07:06 WBC 8.85 (4.0-11.0) K/uL RBC 4.43 L (4.50-5.90) M/uL Hgb 11.1 L (13.0-17.0) g/dL Hct 34.5 L (38.0-50.0) % MCV 77.9 L (80.0-98.0) fL MCH 25.1 L (27.0-32.0) pg MCHC 32.2 (31.0-37.0) g/dL RDW Std Deviation 44.0 (28.0-62.0) fl RDW Coeff of Deonna 15 (11.0-15.0) % Plt Count 209 (150-400) K/uL MPV 9.20 (7.40-12.00) fL Neut % (Auto) 76.7 (48.0-80.0) % Lymph % (Auto) 11.0 L (16.0-40.0) % [place] % (Auto) 11.6 (0.0-15.0) % Eos % (Auto) 0.6 (0.0-7.0) % Baso % (Auto) 0.1 (0.0-1.5) % Neut # (Auto) 6.8 H (1.4-5.7) K/uL Lymph # (Auto) 1.0 (0.6-2.4) K/uL [place] # (Auto) 1.0 H (0.0-0.8) K/uL Eos # (Auto) 0.1 (0.0-0.7) K/uL Baso # (Auto) 0.0 (0.0-0.1) K/uL Nucleated RBC % 0.0 /100WBC Nucleated RBCs # 0 K/uL Lactate (0.20-2.00) mmol/L Sodium 138 (136-148) mmol/L Potassium 3.1 L (3.5-5.1) mmol/L Chloride 100 (98-107) mmol/L Carbon Dioxide 29.8 (21.0-32.0) mmol/L BUN 16 (7.0-18.0) mg/dL Creatinine 0.9 (0.8-1.3) mg/dL Est Cr Clr Drug Dosing 81.34 mL/min Estimated GFR (MDRD) > 60.0 ml/min Glucose 104 (74-106) mg/dL POC Glucose 99 (60-110) mg/dL Calcium 7.8 L (8.5-10.1) mg/dL Magnesium 2.1 (1.8-2.4) mg/dL Total Bilirubin 0.7 (0.2-1.0) mg/dL AST 49 H (15-37) IU/L ALT 47 (14-63) IU/L Alkaline Phosphatase 52 (46-116) U/L Total Protein 6.6 (6.4-8.2) g/dL Albumin 2.2 L (3.4-5.0) g/dL Globulin 4.4 H (2.6-4.0) g/dL Albumin/Globulin Ratio 0.5 L (0.9-1.6) Med Orders - Current: Current Medications Acetaminophen (Tylenol) 650 mg PO Q4H PRN PRN Reason: Pain (Mild 1-3)/fever Last Admin: 12/24/18 08:54 Dose: 650 mg Albuterol/Ipratropium (Duoneb 3.0-0.5 Mg/3 Ml) 3 ml NEB Q4HRRT PRN PRN Reason: Shortness Of Breath/wheezing Chlorthalidone (Chlorthalidone) 12.5 mg PO DAILY [facility] Last Admin: 12/24/18 08:49 Dose: 12.5 mg Folic Acid (Folic Acid) 1 mg PO DAILY [facility] Last Admin: 12/24/18 08:50 Dose: 1 mg Heparin Sodium (Porcine) (Heparin Sodium) 5,000 units SUBCUT Q8H [facility] Last Admin: 12/24/18 08:55 Dose: 5,000 units Levofloxacin/Dextrose 500 mg/ (Premix) 100 mls @ 100 mls/hr IV Q24H [facility] Last Admin: 12/23/18 18:10 Dose: 100 mls/hr Sodium Chloride (Normal Saline) 1,000 mls @ 50 mls/hr IV ASDIRECTED [facility] Omeprazole (Omeprazole) 20 mg PO ACBREAKFAST [facility] Last Admin: 12/24/18 10:16 Dose: 20 mg Oxycodone HCl (Oxycodone) 5 mg PO Q4H PRN PRN Reason: Pain (moderate 4-6) Discontinued Medications Albuterol/Ipratropium (Duoneb 3.0-0.5 Mg/3 Ml) 3 ml NEB ONETIME ONE Stop: 12/23/18 12:34 Last Admin: 12/23/18 12:43 Dose: 3 ml Albuterol/Ipratropium (Duoneb 3.0-0.5 Mg/3 Ml) Confirm Administered Dose 3 ml .ROUTE .STK-MED ONE Stop: 12/23/18 12:41 Last Admin: 12/23/18 17:20 Dose: Not Given Fentanyl (Sublimaze) Confirm Administered Dose 100 mcg .ROUTE .STK-MED ONE Stop: 12/23/18 08:48 Lactated Ringer's (Ringers, Lactated) 1,000 mls @ 125 mls/hr IV ASDIRECTED [facility] Last Admin: 12/23/18 16:52 Dose: 125 mls/hr Lactated Ringer's (Ringers, Lactated) 1,000 mls @ 125 mls/hr IV ASDIRECTED [place] Sodium Chloride (Normal Saline) 1,000 mls @ 125 mls/hr IV ASDIRECTED [facility] Last Admin: 12/24/18 03:02 Dose: 125 mls/hr Lidocaine (Xylocaine-Mpf 2%) Confirm Administered Dose 5 ml .ROUTE .STK-MED ONE Stop: 12/23/18 08:48 Esomeprazole [Nexium (] 40 Mg) 1 each PO DAILY [facility] Last Admin: 12/24/18 10:27 Dose: Not Given Potassium Chloride (Klor-Con M20) 40 meq PO ONETIME ONE Stop: 12/23/18 18:09 Last Admin: 12/23/18 18:21 Dose: 40 meq Propofol (Diprivan 20 Ml) Confirm Administered Dose 400 mg .ROUTE .STK-MED ONE Stop: 12/23/18 08:48 - Exam Quality Assessment: Denies: Supplemental Oxygen General: Reports: Alert, Oriented, Cooperative, No Acute Distress HEENT: Reports: Pupils Equal, Pupils Reactive, EOMI, Mucous Membr. Moist/[place] Neck: Reports: Supple, Trachea Midline Lungs: Reports: Clear to Auscultation, Normal Respiratory Effort Cardiovascular: Reports: Regular Rate, Regular Rhythm GI/Abdominal Exam: Normal Bowel Sounds, Soft, No Distention Back Exam: Reports: Normal Inspection, Full Range of Motion Extremities: Normal Inspection, Normal Range of Motion, No Pedal Edema Skin: Reports: Warm, Dry, Intact Neurological: Reports: No New Focal Deficit Psy/Mental Status: Reports: Alert, Normal Affect, Normal Mood
== END 2018-12-24 14:45 | disposition home or self-care (01) ==
LOC: MW.SDS 09:29 → MW.MS 16:01
PROVIDERS: ADMIT Internal Medicine; ATTEND Internal Medicine
DX: Z12.11 Encounter for screening for malignant neoplasm of colon (principal); D12.3 Benign neoplasm of transverse colon; J18.1 Lobar pneumonia, unspecified organism; J96.01 Acute respiratory failure with hypoxia; E87.6 Hypokalemia; M05.9 Rheumatoid arthritis with rheumatoid factor, unspecified; I10 Essential (primary) hypertension; K21.9 Gastro-esophageal reflux disease without esophagitis; E66.9 Obesity, unspecified; Z88.0 Allergy status to penicillin; Z79.82 Long term (current) use of aspirin; Z79.899 Other long term (current) drug therapy; Z68.33 Body mass index [BMI] 33.0-33.9, adult
CPT/HCPCS: 36415; 45380; 71045; 71250; 80053; 82962; 83605; 83735; 85025; 88305; 94640; 96372; 96374; A9270; G0378; J1644; J1956; J2001; J2704; J3010; J7040; J7120; J7620-GY